=== PATIENT | female | born 1960 | race African-American/Black ===

== ENCOUNTER 2017-05-09 15:11 | Inpatient (IN) | payer SELFPAY, OTHER ==
[2017-05-09 15:40] LABS: ADD MAN DIFF? NO
[2017-05-09 15:45] LABS: BASO % 1 % (0-3); EOS # 0.1 x10^3/uL (0.0-0.7); EOS % 2 % (0-3); HEMATOCRIT 36.6 % (36.0-47.0); HEMOGLOBIN 11.6 g/dL (12.0-15.5); LYMPH # 1.9 x10^3/uL (1.0-4.8); LYMPH % 41 % (24-48); MEAN CORPUSCULAR HEMOGLOBIN 21 pg (25-35); MEAN CORPUSCULAR HGB CONC 32 g/dL (31-37); MEAN CORPUSCULAR VOLUME 67 fL (79-100); MONO # 0.3 x10^3/uL (0.0-1.1); MONO % 7 % (0-9); NEUT # 2.3 x10^3uL (1.8-7.7); NEUT % 49 % (31-73); PLATELET COUNT 214 x10^3/uL (140-400); RED BLOOD COUNT 5.46 x10^6/uL (3.50-5.40); RED CELL DISTRIBUTION WIDTH 16.3 % (11.5-14.5); WHITE BLOOD COUNT 4.6 x10^3/uL (4.0-11.0)
[2017-05-09] MEDS: IV NORMAL SALINE 1000ML BAG 1,000 ML IV ×2 (15:53→18:46)
[2017-05-09] MEDS: ASPIRIN CHEWABLE 81 MG TABLET. PO (15:54)
[2017-05-09] MEDS ORDERED: ONDANSETRON PF 4 MG/2 ML VIAL. IV (16:00)
[2017-05-09 16:19] LABS: ANION GAP 11 (6-14); BLOOD UREA NITROGEN 14 mg/dL (7-20); BUN/CREATININE RATIO 16 (6-20); CARBON DIOXIDE 27 mmol/L (21-32); CHLORIDE 103 mmol/L (98-107); CREATININE 0.9 mg/dL (0.6-1.0); GFR 78.7; GLUCOSE 111 mg/dL (70-99); POTASSIUM 3.9 mmol/L (3.5-5.1); SODIUM 141 mmol/L (136-145)
[2017-05-09 16:29] LABS: ALBUMIN 4.3 g/dL (3.4-5.0); ALBUMIN/GLOBULIN RATIO 1.1 (1.0-1.7); ALK PHOS 82 U/L (46-116); ALT (SGPT) 31 U/L (14-59); AST (SGOT) 18 U/L (15-37); TOTAL BILIRUBIN 0.3 mg/dL (0.2-1.0); TOTAL PROTEIN 8.2 g/dL (6.4-8.2)
[2017-05-09 16:33] LABS: TROPONINI < 0.017 ng/mL (0.000-0.055)
[2017-05-09 16:45] LABS: PLT ESTIMATE ADEQUATE (ADEQUATE)
[2017-05-09 16:46] LABS: ANISOCYTOSIS SLIGHT; HYPOCHROMIA MOD; MICROCYTOSIS MARKED; OVALOCYTES FEW; POIKILOCYTOSIS SLIGHT
[2017-05-09] MEDS: MORPHINE SULFATE 2 MG/ML DISP.SYRIN. IV (20:37)
[2017-05-09 22:51] LABS: TROPONINI < 0.017 ng/mL (0.000-0.055)
[2017-05-10] MEDS: IV NORMAL SALINE 1000ML BAG 1,000 ML IV ×2 (01:14→07:23)
[2017-05-10 05:41] LABS: TROPONINI < 0.017 ng/mL (0.000-0.055)
[2017-05-10] MEDS ORDERED: HYDROcodone/APAP 5/325MG 1 TAB TABLET PO (08:30)
[2017-05-10] MEDS ORDERED: ASPIRIN ENTERIC COATED 81 MG TABLET.DR. PO (08:30)
[2017-05-10] MEDS ORDERED: ACETAMINOPHEN 500 MG TABLET PO (08:30)
[2017-05-10] MEDS ORDERED: ONDANSETRON PF 4 MG/2 ML VIAL. IV (08:45)
[2017-05-10 09:48] LABS: CHOLESTEROL 161 mg/dL (0-200); CHOLESTEROL/HDL RATIO 3.2; HDLC 50 mg/dL (40-60); LDLC 95 mg/dL (0-100); NON-HDL CHOLESTEROL 111 mg/dL (0-129); TRIGLYCERIDES 78 mg/dL (0-150); VLDLC 16 mg/dL (0-40)
[2017-05-10] MEDS ORDERED: PANTOPRAZOLE 40 MG TABLET.DR. PO (10:00)
== END 2017-05-10 11:06 | disposition home or self-care (01) | DRG 206 ==
LOC: ER 15:11 → 5 NORTH 17:12
DX: M94.0 Chondrocostal junction syndrome [Tietze] (principal); H40.9 Unspecified glaucoma; K21.9 Gastro-esophageal reflux disease without esophagitis; R07.89 Other chest pain; I10 Essential (primary) hypertension; Z83.3 Family history of diabetes mellitus; M19.90 Unspecified osteoarthritis, unspecified site; Z87.440 Personal history of urinary (tract) infections
CPT/HCPCS: 36415; 71045; 80053; 80061; 84484; 85025; 93005; 96360; 96361; 99285; 99285-25; J2270; J7030

== ENCOUNTER 2017-12-16 16:32 | Emergency (ER) | payer SELFPAY ==
[~2017-12-16] VITALS: Ht 165.1 cm; Wt 77.1 kg
[~2017-12-16 16:32] MED LIST: ASPI-630 PO
[2017-12-16] MEDS ORDERED: NITROGLYCERIN SUBLINGUAL 0.4 MG BOTTLE OF 25. SL PRN (17:30)
[2017-12-16] MEDS ORDERED: ASPIRIN 325 MG TABLET PO ONE (17:30)
[2017-12-16 17:33] LABS: BASO % 1 % (0-3); EOS # 0.1 x10^3/uL (0.0-0.7); EOS % 4 % (0-3); HEMOGLOBIN 10.9 g/dL (12.0-15.5); LYMPH # 1.8 x10^3/uL (1.0-4.8); LYMPH % 50 % (24-48); MEAN CORPUSCULAR HEMOGLOBIN 22 pg (25-35); MEAN CORPUSCULAR HGB CONC 32 g/dL (31-37); MEAN CORPUSCULAR VOLUME 68 fL (79-100); MONO # 0.3 x10^3/uL (0.0-1.1); MONO % 9 % (0-9); NEUT # 1.3 x10^3uL (1.8-7.7); NEUT % 36 % (31-73); PLATELET COUNT 169 x10^3/uL (140-400); RED BLOOD COUNT 5.01 x10^6/uL (3.50-5.40); RED CELL DISTRIBUTION WIDTH 15.7 % (11.5-14.5); WHITE BLOOD COUNT 3.5 x10^3/uL (4.0-11.0)
[2017-12-16 17:44] LABS: CREATININE 0.7 mg/dL (0.6-1.0); GFR 105.1; POTASSIUM 4.3 mmol/L (3.5-5.1); PROTHROMBIN TIME PATIENT 12.9 SEC (11.7-14.0)
[2017-12-16 17:49] LABS: ALBUMIN 3.9 g/dL (3.4-5.0); ALBUMIN/GLOBULIN RATIO 1.1 (1.0-1.7); MAGNESIUM 2.2 mg/dL (1.8-2.4); TOTAL BILIRUBIN 0.4 mg/dL (0.2-1.0); TOTAL PROTEIN 7.3 g/dL (6.4-8.2)
[2017-12-16 17:57] LABS: CREATINE KINASE 112 U/L (26-192)
[2017-12-16 18:30] LABS: ANISOCYTOSIS MOD; HYPOCHROMIA MOD; MICROCYTOSIS MARKED; PLT ESTIMATE ADEQUATE (ADEQUATE); POIKILOCYTOSIS MOD
[2017-12-16 18:31] LABS: OVALOCYTES MOD; TEAR DROP CELLS OCC
[2017-12-16] MEDS ORDERED: FAMOTIDINE 20 MG/2 ML VIAL IVP ONE (19:00)
--- NOTE | 2017-12-16 19:58 | RAD ---
Clinical History: Right upper quadrant pain Technique: Sonographic examination of the right upper quadrant of the abdomen was performed and multiple static images were obtained. Comparison: none Findings: There is a solid mass in the right lobe of liver that measures 4.6 x 3.2 x 3.2 cm. There is also a cyst in the right lobe of the liver. The common bile duct pancreas and right kidney are not well seen due to overlying bowel gas. Impression: 1. No evidence of gallbladder disease. 2. Solid mass in the liver. The patient should have a follow-up multiphase MR examination as an outpatient. Electronically signed by: Jam Yang III, MD (12/16/2017 7:54 PM) [id number]
--- NOTE | 2017-12-16 21:38 | RAD ---
AP portable chest radiograph 12/16/2017 Clinical History: Mid chest pain. An AP erect portable digital radiograph of the chest was obtained. Comparison study is dated 05/09/2017. The cardiac silhouette is borderline enlarged. The thoracic aorta is mildly tortuous. No acute pulmonary infiltrate is seen. No pleural effusion or pneumothorax is noted. Degenerative changes are seen involving the thoracic spine and both shoulders. IMPRESSION: No acute abnormality is seen. Electronically signed by: Zeferino Estrada MD (12/16/2017 9:34 PM) [facility]
--- NOTE | 2017-12-16 22:01 | EKG ---
[facility] [address] [place] [address] Test Date: 2017-12-16 Test Time: 16:46:56 Pat Name: BILLY GARCIA Department: Room: Gender: F Hse Coordinator: : 1960 Requested By: TOSIN MORTENSEN Order Number: [id number] Reading MD: Hasmukh De La Cruz MD Measurements Intervals [place] Rate: 71 P: 54 WI: 134 QRS: 45 QRSD: 76 T: 49 QT: 384 QTc: 422 Interpretive Statements SINUS RHYTHM CONSISTENT WITH SEPTAL INFARCT Electronically Signed On 12-17-2017 12:47:36 CDT by Hasmukh De La Cruz MD
[2017-12-16] MEDS ORDERED: FAMO-63 PO (22:14)
--- NOTE | 2017-12-16 22:15 | PHYS DOC ---
Past Medical History Past Medical History: Glaucoma, Hypertension Past Surgical History: No Surgical History Alcohol Use: None Drug Use: None Adult General Chief Complaint Chief Complaint: CHEST PAIN HPI HPI Patient is a 57 year old [f__sex] who presents with [] Review of Systems Review of Systems Constitutional: Denies fever or chills [] Eyes: Denies change in visual acuity, redness, or eye pain [] HENT: Denies nasal congestion or sore throat [] Respiratory: Denies cough or shortness of breath [] Cardiovascular: No additional information not addressed in HPI [] GI: Denies abdominal pain, nausea, vomiting, bloody stools or diarrhea [] : Denies dysuria or hematuria [] Musculoskeletal: Denies back pain or joint pain [] Integument: Denies rash or skin lesions [] Neurologic: Denies headache, focal weakness or sensory changes [] Endocrine: Denies polyuria or polydipsia [] All other systems were reviewed and found to be within normal limits, except as documented in this note. Current Medications Current Medications Current Medications Medications (Trade) Dose Ordered Sig/Carla Start Time Stop Time Status Last Admin Dose Admin Aspirin (Vianney Aspirin) 325 mg 1X ONCE 12/16/17 17:30 12/16/17 17:31 DC 12/16/17 18:36 325 MG Famotidine (Pepcid Vial) 20 mg 1X ONCE 12/16/17 19:00 12/16/17 19:03 DC 12/16/17 19:00 20 MG Nitroglycerin (Nitrostat) 0.4 mg PRN Q5MIN PRN 12/16/17 17:30 12/17/17 17:29 12/16/17 18:41 0.4 MG Allergies Allergies Allergies Coded Allergies Type Severity Reaction Last Updated Verified No Known Drug Allergies 12/16/17 No Physical Exam Physical Exam Constitutional: Well developed, well nourished, no acute distress, non-toxic appearance. [] HENT: Normocephalic, atraumatic, bilateral external ears normal, oropharynx moist, no oral exudates, nose normal. [] Eyes: PERRLA, EOMI, conjunctiva normal, no discharge. [] Neck: Normal range of motion, no tenderness, supple, no stridor. [] Cardiovascular:Heart rate regular rhythm, no murmur [] Lungs & Thorax: Bilateral breath sounds clear to auscultation [] Abdomen: Bowel sounds normal, soft, no tenderness, no masses, no pulsatile masses. [] Skin: Warm, dry, no erythema, no rash. [] Back: No tenderness, no CVA tenderness. [] Extremities: No tenderness, no cyanosis, no clubbing, ROM intact, no edema. [] Neurologic: Alert and oriented X 3, normal motor function, normal sensory function, no focal deficits noted. [] Psychologic: Affect normal, judgement normal, mood normal. [] Current Patient Data Vital Signs Vital Signs Date Time Temp Pulse Resp B/P (MAP) Pulse Ox O2 Delivery O2 Flow Rate FiO2 12/16/17 20:59 65 18 126/83 (97) 98 12/16/17 16:40 98.1 Room Air 98.1 Lab Values Laboratory Tests Test 12/16/17 17:25 12/16/17 21:05 White Blood Count 3.5 x10^3/uL (4.0-11.0) L Red Blood Count 5.01 x10^6/uL (3.50-5.40) Hemoglobin 10.9 g/dL (12.0-15.5) L Hematocrit 34.0 % (36.0-47.0) L Mean Corpuscular Volume 68 fL (79-100) L Mean Corpuscular Hemoglobin 22 pg (25-35) L Mean Corpuscular Hemoglobin Concent 32 g/dL (31-37) Red Cell Distribution Width 15.7 % (11.5-14.5) H Platelet Count 169 x10^3/uL (140-400) Neutrophils (%) (Auto) 36 % (31-73) Lymphocytes (%) (Auto) 50 % (24-48) H Monocytes (%) (Auto) 9 % (0-9) Eosinophils (%) (Auto) 4 % (0-3) H Basophils (%) (Auto) 1 % (0-3) Neutrophils # (Auto) 1.3 x10^3uL (1.8-7.7) L Lymphocytes # (Auto) 1.8 x10^3/uL (1.0-4.8) Monocytes # (Auto) 0.3 x10^3/uL (0.0-1.1) Eosinophils # (Auto) 0.1 x10^3/uL (0.0-0.7) Basophils # (Auto) 0.0 x10^3/uL (0.0-0.2) Platelet Estimate Adequate (ADEQUATE) Large Platelets Few Hypochromasia Mod Poikilocytosis Mod Anisocytosis Mod Microcytosis Marked Tear Drop Cells Occ Ovalocytes Mod Prothrombin Time 12.9 SEC (11.7-14.0) Prothrombin Time INR 1.0 (0.8-1.1) Sodium Level 141 mmol/L (136-145) Potassium Level 4.3 mmol/L (3.5-5.1) Chloride Level 106 mmol/L (98-107) Carbon Dioxide Level 25 mmol/L (21-32) Anion Gap 10 (6-14) Blood Urea Nitrogen 8 mg/dL (7-20) Creatinine 0.7 mg/dL (0.6-1.0) Estimated GFR (Cockcroft-Gault) 105.1 BUN/Creatinine Ratio 11 (6-20) Glucose Level 101 mg/dL (70-99) H Calcium Level 9.0 mg/dL (8.5-10.1) Magnesium Level 2.2 mg/dL (1.8-2.4) Total Bilirubin 0.4 mg/dL (0.2-1.0) Aspartate Amino Transferase (AST) 13 U/L (15-37) L Alanine Aminotransferase (ALT) 18 U/L (14-59) Alkaline Phosphatase 58 U/L (46-116) Creatine Kinase 112 U/L (26-192) Creatine Kinase MB (Mass) < 0.5 ng/mL (0.0-3.6) Creatine Kinase MB Relative Index % (0-4) Troponin I Quantitative < 0.017 ng/mL (0.000-0.055) < 0.017 ng/mL (0.000-0.055) PI-Rlm-U-Type Natriuretic Peptide 21 pg/mL (0-124) Total Protein 7.3 g/dL (6.4-8.2) Albumin 3.9 g/dL (3.4-5.0) Albumin/Globulin Ratio 1.1 (1.0-1.7) Lipase 182 U/L (73-393) Laboratory Tests 12/16/17 17:25 Laboratory Tests 18 17:25 EKG EKG @1646 NSR at 71bpm, NO ST elevation Radiology/Procedures Radiology/Procedures PROCEDURE: PORTABLE CHEST 1V AP portable chest radiograph 12/16/2017 Clinical History: Mid chest pain. An AP erect portable digital radiograph of the chest was obtained. Comparison study is dated 05/09/2017. The cardiac silhouette is borderline enlarged. The thoracic aorta is mildly tortuous. No acute pulmonary infiltrate is seen. No pleural effusion or pneumothorax is noted. Degenerative changes are seen involving the thoracic spine and both shoulders. IMPRESSION: No acute abnormality is seen. Electronically signed by: Zeferino Estrada MD (12/16/2017 9:34 PM) [facility] PROCEDURE: ABDOMEN LTD Clinical History: Right upper quadrant pain Technique: Sonographic examination of the right upper quadrant of the abdomen was performed and multiple static images were obtained. Comparison: none Findings: There is a solid mass in the right lobe of liver that measures 4.6 x 3.2 x 3.2 cm. There is also a cyst in the right lobe of the liver. The common bile duct pancreas and right kidney are not well seen due to overlying bowel gas. Impression: 1. No evidence of gallbladder disease. 2. Solid mass in the liver. The patient should have a follow-up multiphase MR examination as an outpatient. Electronically signed by: Jam Yang III, MD (12/16/2017 7:54 PM) [facility] Course & Med Decision Making Course & Med Decision Making Pertinent Labs and Imaging studies reviewed. (See chart for details) [] Dragon Disclaimer Dragon Disclaimer This electronic medical record was generated, in whole or in part, using a voice recognition dictation system. Departure Departure Impression: Primary Impression: Atypical chest pain Additional Impression: Liver mass Disposition: 01 HOME, SELF-CARE Condition: STABLE Referrals: MICHAEL BECERRA MD (PCP) Patient Instructions: Chest Pain (Nonspecific), [id number], Gastritis, Adult , [id number], Incidental Abdominal Radiological Finding Additional Instructions: Please give copy of ultrasound report to your doctor regarding liver mass seen on ultrasound. You will need further imaging and evaluation. Scripts Famotidine (PEPCID) 20 Mg Tablet 20 MG PO BID, #20 TAB Prov: MATIAS BARROSO DO 12/16/17 Problem Qualifiers MATIAS BARROSO DO Dec 16, 2017 22:15
[2017-12-16 22:24] VITALS: BP 147/83
== END 2017-12-16 22:38 | disposition home or self-care (01) ==
LOC: ER 16:32
DX: R07.89 Other chest pain (principal); R16.0 Hepatomegaly, not elsewhere classified; I10 Essential (primary) hypertension
CPT/HCPCS: 36415; 71045; 76705; 80053; 82550; 82553; 83690; 83735; 83880; 84484; 85025; 85610; 93005; 96374; 99285; S0028